=== PATIENT | female | born 1940 | race Caucasian/White ===

== ENCOUNTER 2019-07-13 09:55 | Outpatient (CLI) | payer MEDICARE, OTHER, SELFPAY ==
--- NOTE | ~2019-07-13 | MM_ITS ---
EXAMINATION: MM screening [facility] BI w irineo HISTORY: Screening mammogram TECHNIQUE: Craniocaudal and mediolateral oblique 3-D tomosynthesis images were obtained and synthetic 2-D images were generated. CAD analysis was submitted and interpreted. COMPARISON: 07/22/2018, 06/16/2017, 06/11/2016 bilateral digital screening mammogram examinations BREAST PARENCHYMAL COMPOSITION: There are scattered areas of fibroglandular density. FINDINGS: There is no evidence of suspicious mass, calcification, or architectural distortion to sugg est malignancy in either breast. There has been no suspicious interval change. IMPRESSION: 1. No mammographic evidence of malignancy. 2. Recommend routine screening mammography in one year. BI-RADS Category 1: Negative Reviewed, dictated and finalized at location A.
== END 2019-07-13 09:56 | disposition home or self-care (01) ==
PROVIDERS: PCP Registered Nurse; Visit Provider Registered Nurse
DX: Z12.31 Encounter for screening mammogram for malignant neoplasm of breast (principal)
CPT/HCPCS: 77063; 77067

== ENCOUNTER 2020-07-17 09:26 | Outpatient (CLI) | payer MEDICARE, OTHER, SELFPAY ==
--- NOTE | ~2020-07-17 | MM_ITS ---
EXAMINATION: MM screening [facility] BI w irineo HISTORY: Screening mammogram TECHNIQUE: Craniocaudal and mediolateral oblique 3-D tomosynthesis images were obtained and synthetic 2-D images were generated. CAD analysis was submitted and interpreted. COMPARISON: 07/13/2019, 07/12/2018, 06/12/2017 bilateral digital screening mammogram examinations BREAST PARENCHYMAL COMPOSITION: There are scattered areas of fibroglandular density. FINDINGS: There is no evidence of suspicious mass, calcification, or architectural distortion to sugg est malignancy in either breast. There has been no suspicious interval change. IMPRESSION: 1. No mammographic evidence of malignancy. 2. Recommend routine screening mammography in one year. BI-RADS Category 1: Negative Reviewed, dictated and finalized at location A.
== END 2020-07-17 09:27 | disposition home or self-care (01) ==
PROVIDERS: PCP Registered Nurse; Visit Provider Registered Nurse
DX: Z12.31 Encounter for screening mammogram for malignant neoplasm of breast (principal)
CPT/HCPCS: 77063; 77067

== ENCOUNTER → 2020-10-31 09:24 | Outpatient (CLI) | payer MEDICARE, OTHER, SELFPAY ==
--- NOTE | ~2020-10-31 | MR_ITS ---
EXAMINATION: MR foot RT wo con DATE: 10/31/2020 10:29 INDICATION: Right foot pain. TECHNIQUE: Magnetic resonance imaging (MRI) of the right foot was performed without intravenous contr ast. Sequences included sagittal T1-weighted FSE and STIR FSE, long axis PD-weighted FSE and STIR FSE , and short axis TI-weighted FSE and STIR FSE. COMPARISON: None FINDINGS: There is a skin marker dorsal to Lisfranc joint. There is moderate hallux valgus. There are screws in first proximal phalanx and first metatarsal. No fracture. There is severe osteoarthritis o f first metatarsophalangeal joint and mild to moderate osteoarthritis of many of the interphalangeal joints. There is severe osteoarthritis of second and third tarsometatarsal joints. There is mild to m oderate osteoarthritis of many of the other midfoot and hindfoot joints. There is thickening of the p lantar fascia near the calcaneal attachment with an enthesophyte at the calcaneal attachment, consist ent with fasciitis. Lisfranc ligament is intact. The flexor and extensor tendons are unremarkable. Th ere is moderate fatty atrophy of abductor digiti quinti muscle. IMPRESSION: 1. 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 2. Moderate hallux valgus. Reviewed, dictated and finalized at location A. IMPRESSION: 1. Polyarticular osteoarthritis including severe osteoarthritis of the second a nd third tarsometatarsal joints in the area of the patient's pain. 2. Moderate hallux valgus.
== END ==
PROVIDERS: PCP Registered Nurse; Visit Provider Podiatrist Foot & Ankle Surgery
DX: M19.071 Primary osteoarthritis, right ankle and foot (principal); M20.11 Hallux valgus (acquired), right foot
CPT/HCPCS: 73718

== ENCOUNTER 2020-12-13 12:01 | Outpatient (CLI) | payer MEDICARE, OTHER, SELFPAY ==
--- NOTE | ~2020-12-13 | XR_ITS ---
EXAMINATION: XR hand RT 2V, XR hand LT 2V DATE: 12/13/2020 12:38 INDICATION: Polyarthralgia, right greater than left. TECHNIQUE: 1. Posteroanterior and lateral views of the right hand were obtained. 2. Posteroanterior and lateral views of the left hand were obtained. COMPARISON: None. FINDINGS: Alignment is normal at both hands. No fractures. Polyarticular osteoarthritis characterized by nonuni form joint space narrowing and marginal osteophyte formation, moderate severity at the bilateral firs t carpometacarpal joints, bilateral second metacarpophalangeal joints and bilateral second and third distal interphalangeal joints. Mild osteoarthritis at the remaining metacarpophalangeal and interphal angeal joints. There is periarticular soft tissue swelling at several of the metacarpophalangeal and interphalangeal joints most prominent at the right second metacarpophalangeal joint. No definitive er osions to suggest inflammatory arthritis. IMPRESSION: 1. Relatively symmetric moderate polyarticular osteoarthritis at the bilateral hands. Reviewed, dictated and finalized at location A. IMPRESSION: 1. Relatively symmetric moderate polyarticular osteoarthritis at the bilateral hands.
== END 2020-12-13 12:02 | disposition home or self-care (01) ==
PROVIDERS: PCP Registered Nurse; Visit Provider Physician Assistant
DX: M19.041 Primary osteoarthritis, right hand (principal); M19.042 Primary osteoarthritis, left hand
CPT/HCPCS: 73120

== ENCOUNTER 2021-01-15 13:25 | Emergency (ER) | payer MEDICARE, OTHER, SELFPAY ==
--- NOTE | ~2021-01-15 | XR_ITS ---
EXAMINATION: XR hand RT min 3V DATE: 01/15/2021 13:51 INDICATION: Right hand injury with laceration to the third and fourth digits. TECHNIQUE: Posteroanterior, oblique and lateral views of the right hand were obtained. COMPARISON: 12/13/2020 FINDINGS: Oblique linear lucent fracture line extending from the radial aspect of the tuft of the fourth distal phalanx to the ulnar side of the mid diaphysis. Soft tissue swelling and irregular skin contour at t he distal phalanx consistent with reported laceration injury. Similar suggestion of laceration at the radial aspect of the fourth distal phalanx. No other fractures identified. Again seen is polyarticul ar osteoarthritis, severe at the second distal interphalangeal joint and moderate severity at the fir st carpometacarpal, second metacarpophalangeal and third-fifth distal interphalangeal joints and mild at the triscaphe and remaining metacarpophalangeal and interphalangeal joints. IMPRESSION: 1. Nondisplaced extra articular fracture at the fourth distal phalanx with adjacent laceration sugges t this may represent an open/compound fracture. 2. Moderate severity polyarticular osteoarthritis through the right hand. Reviewed, dictated and finalized at location A. ING INSPECTOR IMPRESSION: 1. Nondisplaced extra articular fracture at the fourth distal phalanx with dorie cent laceration suggest this may represent an open/compound fracture. 2. Moderate severity polyarticular osteoarthritis through the right hand.
[2021-01-15 13:41] VITALS: BP 165/92; PULSE 137; RESP 18; TEMP 37; O2SAT 100
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
--- NOTE | 2021-01-15 14:49 | PC.NURSE ---
registry np in to suture.
== END 2021-01-15 15:53 | disposition home or self-care (01) ==
PROVIDERS: Emergency Provider Nurse Practitioner; PCP Registered Nurse
DX: S62.664B Nondisplaced fracture of distal phalanx of right ring finger, initial encounter for open fracture (principal); S61.212A Laceration without foreign body of right middle finger without damage to nail, initial encounter; V09.29XA Pedestrian injured in traffic accident involving other motor vehicles, initial encounter; E78.00 Pure hypercholesterolemia, unspecified; I10 Essential (primary) hypertension; G25.81 Restless legs syndrome
CPT/HCPCS: 12002; 73130; 99213; G0463

== ENCOUNTER 2021-08-14 09:58 | Outpatient (CLI) | payer MEDICARE, OTHER, SELFPAY ==
--- NOTE | ~2021-08-14 | MM_ITS ---
EXAMINATION: MM screening [facility] BI w irineo HISTORY: Screening mammogram TECHNIQUE: Craniocaudal and mediolateral oblique 3-D tomosynthesis images were obtained and synthetic 2-D images were generated. CAD analysis was submitted and interpreted. COMPARISON: 07/17/2020, 07/13/2019, 06/25/2018 bilateral screening mammogram examinations BREAST PARENCHYMAL COMPOSITION: There are scattered areas of fibroglandular density. FINDINGS: There is no evidence of suspicious mass, calcification, or architectural distortion to sugg est malignancy in either breast. There has been no suspicious interval change. IMPRESSION: 1. No mammographic evidence of malignancy. 2. Recommend routine screening mammography in one year. BI-RADS Category 1: Negative Reviewed, dictated and finalized at location A.
== END 2021-08-14 09:59 | disposition home or self-care (01) ==
PROVIDERS: PCP Registered Nurse; Visit Provider Registered Nurse
DX: Z12.31 Encounter for screening mammogram for malignant neoplasm of breast (principal)
CPT/HCPCS: 77063; 77067

== ENCOUNTER 2022-11-26 10:18 | Outpatient (CLI) | payer MEDICARE, OTHER, SELFPAY ==
--- NOTE | ~2022-11-26 | MM_ITS ---
EXAMINATION: MM screening [facility] BI w irineo HISTORY: Screening mammogram TECHNIQUE: Craniocaudal and mediolateral oblique 3-D tomosynthesis images were obtained and synthetic 2-D images were generated. CAD analysis was submitted and interpreted. COMPARISON: 08/14/2021, 07/17/2020, 07/13/2019 BREAST PARENCHYMAL COMPOSITION: There are scattered areas of fibroglandular density. FINDINGS: No suspicious mass, calcification, or architectural distortion are identified in either suly ast to suggest malignancy. There has been no suspicious interval change. IMPRESSION: 1. No mammographic evidence of malignancy. 2. Recommend routine screening mammography while the patient remains in good health. BI-RADS Category 1: Negative Reviewed, dictated and finalized at location A. IMPRESSION: 1. No mammographic evidence of malignancy. 2. Recommend routine screening mammography while the patient remains in good he alth. BI-RADS Category 1: Negative
== END 2022-11-26 10:19 | disposition home or self-care (01) ==
LOC: ANHIMG 10:20
PROVIDERS: PCP Registered Nurse; Visit Provider Registered Nurse
DX: Z12.31 Encounter for screening mammogram for malignant neoplasm of breast (principal)
CPT/HCPCS: 77063; 77067

== ENCOUNTER 2023-03-06 10:17 | Outpatient (CLI) | payer MEDICARE, OTHER, SELFPAY ==
--- NOTE | ~2023-03-06 | XR_ITS ---
Left foot Technique: AP, oblique, and lateral views were obtained. Clinical History: Rheumatoid arthritis Findings: No acute fracture or dislocation is seen. Osseous alignment is anatomic. Joint spaces are p reserved without erosive or degenerative change. Soft tissues are unremarkable. Impression: Unremarkable left foot radiographs. Reviewed, dictated and finalized at [facility]. FACTURING ADVISOR Impression: Unremarkable left foot radiographs.
--- NOTE | ~2023-03-06 | XR_ITS ---
Right Hand Technique: PA, oblique, and lateral views were obtained. Clinical History: Rheumatoid arthritis Findings: No acute fracture or dislocation is seen. There is advanced osteoarthritis of the second DI P joint. There is mild osteoarthritis of the second MCP joint, first CMC joint, and third and fourth DIP joints. There is moderate degenerative change at the third PIP joint.. Soft tissues are unremarka ble. Impression: Scattered osteoarthritic changes, as above. Reviewed, dictated and finalized at location M. D RAIL INSTALLER Impression: Scattered osteoarthritic changes, as above.
--- NOTE | ~2023-03-06 | XR_ITS ---
Left Hand Technique: PA, oblique, and lateral views were obtained. Clinical History: Rheumatoid arthritis Findings: No acute fracture or dislocation is seen. There is moderate to advanced degenerative change at the first CMC joint. There is moderate degenerative change of the second MCP joint. There is mild degenerative change scattered in the interphalangeal joints. Soft tissues are unremarkable. Impression: Scattered degenerative changes, as above, worst at the first CMC joint. Reviewed, dictated and finalized at location . WELDER Impression: Scattered degenerative changes, as above, worst at the first CMC joint.
--- NOTE | ~2023-03-06 | XR_ITS ---
Right foot Technique: AP, oblique, and lateral views were obtained. Clinical History: Rheumatoid arthritis Findings: No acute fracture or dislocation is seen. There is orthopedic hardware at the distal first metatarsal and midportion of the proximal phalanx of the great toe. Suspected mild erosive changes at the TMT joints. Soft tissues are unremarkable. Impression: Suspected erosive changes at the TMT joints, which could relate to rheumatoid arthritis versus other inflammatory arthropathy. Operative changes at the great toe, as noted above. Correlate with surgical history. Reviewed, dictated and finalized at location . LANE NAVIGATOR Impression: Suspected erosive changes at the TMT joints, which could relate to rheumatoid a rthritis versus other inflammatory arthropathy. Operative changes at the great toe, as noted above. Correlate with surgical his tory.
== END 2023-03-06 10:18 ==
LOC: MICIMG 10:19
PROVIDERS: PCP Registered Nurse; Visit Provider Physician Assistant
DX: M06.00 Rheumatoid arthritis without rheumatoid factor, unspecified site (principal); G89.29 Other chronic pain; M19.041 Primary osteoarthritis, right hand; M19.042 Primary osteoarthritis, left hand; M19.071 Primary osteoarthritis, right ankle and foot
CPT/HCPCS: 73120; 73630

== ENCOUNTER 2023-08-17 12:16 | Outpatient (CLI) | payer MEDICARE, OTHER, SELFPAY ==
--- NOTE | ~2023-08-17 | XR_ITS ---
EXAMINATION: XR shoulder RT min 2V DATE: 08/17/2023 12:34 INDICATION: Acute onset right shoulder pain and decreased range of motion post lifting injury one mon th prior TECHNIQUE: AP internally and externally rotated, AP oblique externally rotated and transscapular Y vi ews of the right shoulder were obtained. COMPARISON: None FINDINGS: Normal alignment. No fracture.Mild right glenohumeral osteoarthritis and moderate to severe acromioc lavicular osteoarthritis. Right lung is clear with no focal airspace opacities, pulmonary edema, pleu ral effusion or pneumothorax. Soft tissues are unremarkable. IMPRESSION: Mild right glenohumeral and moderate to severe acromioclavicular osteoarthritis. No acute osseous abn ormality. Reviewed, dictated and finalized at location B. IMPRESSION: Mild right glenohumeral and moderate to severe acromioclavicular osteoarthritis . No acute osseous abnormality.
== END 2023-08-17 12:17 ==
PROVIDERS: PCP Registered Nurse; Visit Provider Nurse Practitioner
DX: M19.011 Primary osteoarthritis, right shoulder (principal)
CPT/HCPCS: 73030

== ENCOUNTER 2024-06-21 10:24 | Outpatient (CLI) | payer MEDICARE, OTHER, SELFPAY ==
--- NOTE | ~2024-06-21 | MM_ITS ---
EXAMINATION: MM screening [facility] BI w [facility] HISTORY: Screening mammogram TECHNIQUE: Craniocaudal and mediolateral oblique 3-D tomosynthesis images were obtained and synthetic 2-D images were generated. CAD analysis was submitted and interpreted. COMPARISON: 11/26/2022, 08/14/2021, 07/17/2020 BREAST PARENCHYMAL COMPOSITION:Not Dense. There are scattered areas of fibroglandular density. FINDINGS: No suspicious mass, calcification, or architectural distortion are identified in either suly ast to suggest malignancy. There has been no suspicious interval change. IMPRESSION: No mammographic evidence of malignancy. Recommend routine screening mammography in one year. BI-RADS Category 1: Negative Reviewed, dictated and finalized at location .
--- OUTSIDE RECORDS SUMMARY | 2024-06-21 11:37 | XMS_ITS | Encounter Summary ---
Author Organization [facility] Address [address] [place] [address] Care Team Providers Care Cattle Inspector Name Role Phone Katie Cartagena Primary Care Provider Encounter Details Date Type Department Care Team (Late st Contact Info) Description 04/25/2020 SmartSynch Message Enc [facility] Family & Internal Medicine [facility] [address] [place] [id number] Katie Cartagena APNP [address] [place] [address] RE: Medication Questions Social History Tobacco Use Types Packs/Day Years Used Date Smoking Tobacco: Former Cigarettes 2 29 Smokeless Tobacco: Never Alcohol Use Standard Drinks/Week Comments Yes 0 (1 standard drink = 0.6 oz pur e alcohol) AUDIT-C Answer Date Recorded Frequency of Alcohol Consumption 2-3 times a wee k 08/11/2018 Average Number of Drinks Not on file 019 Frequency of Binge Drinking Not on file 07/24 PHQ-2 Answer Date Recorded PHQ-2 Score - If the patient scores above 3, please move on to questions 3-9 0 02/02/2020 Comments No Sex and Gender Information Value Date Recorded Sex Assigned at Female 04/29/2024 4:45 PM 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 No / Unsure 04/28/2020 12:16 PM STYRENE DEHYDRATION REACTOR OPERATOR documented as of this encounter Plan of Treatment Upcoming Encounters Date Type Department Care Team (Late st Contact Info) Description 03/02/2025 10:30 AM STYRENE DEHYDRATION REACTOR OPERATOR Office Visit [facility] [address] [place] [address] Darnell Dunne MD [facility]. [facility] [address] [place] [address] documented as of this encounter Visit Diagnoses Not on filedocumented in this encounter Care Teams Cattle Inspector Relationship Specialty Start Date End Date Katie Cartagena APNP [address] [place] [id number] PCP - General FAMILY PRACTICE 01/12/18 documented as of this encounter
--- OUTSIDE RECORDS SUMMARY | 2024-06-21 11:37 | XMS_ITS | Continuity of Care Document ---
Author Organization [facility] Address [address] [place] [address] Phone Care Team Providers Care Endoscopy Specialty Technician Name Role Phone Pramod Vega MD Unavailable Unavailable Allergies, Adverse Reactions, Alerts Substance Reaction Status Criticality Penicillins Rash and swelling Active No Informa tion Medications Medication Instructions Dosage Effective Dates (start - stop) Status Comments SIMVASTATIN (unknown strength) Not Available - Active METOPROLOL SUCCINATE (unknown strength) Not Available - Active POTASSIUM (unknown strength) Not Available - Active hydrocodone 7.5 mg-acetaminophen 325 mg tablet - Active methadone 5 mg tablet - Active Procedures Procedure Date OFFICE/OUTPATIENT VISIT EST OFFICE/OUTPATIENT VISIT EST OFFICE/OUTPATIENT VISIT NEW OFFICE/OUTPATIENT VISIT NEW Advance Directives Directive Yes / No Effective Date File Name No Information Encounters Encounter Description Practice Location Reason(s) For Visit Diagnoses Date Provider Providers Copied on Encounter OFFICE/OUTPA TIENT VISIT EST [facility], [address] [facility] [address], [place], [address], [place] tel:[phone] [facility] hip painTrochanteric bursitis 5 Gary Benavidez. [address], [place], [place], [id number] . tel: [phone] OFFICE/OUTPA TIENT VISIT EST [facility], [address], [place], [address], [place] tel:[phone] [facility] Bilateral hip followup (chief complaint) Hip bursitis 4 Bianca Styles. [address] [place], [place], [id number] . tel:[phone] OFFICE/OUTPA TIENT VISIT NEW [facility], [address], [address], tel:[phone] [facility] Left hip pain (chief complaint) Degeneration of lumbar or lumbosacral intervertebral discHip bursitis Sep-3 0-201 4 Alex Patino. [address] [place], [place], [id number] . tel:[phone] Referring Provider: David duran, [address] [place], [address] . tel:[phone] OFFICE/OUTPA TIENT VISIT NEW [facility], [address], [address], tel:[phone] [facility] Bilateral hip pain (chief complaint) Bursitis of hip regionDegeneratio n of lumbar disc disease Sep-2 3-201 4 Bianca Styles. [address] [place], [place], [id number] . tel:[phone] Referring Provider: David duran, [address] [place], [address] . tel:[phone] Family History Family Member Type Diagnosis Age At Onset Father Problem (finding) Cardiovascular disease Mother Problem (finding) chronic obstructive mayra g disease Problem (finding) Family history of renal stone Mother Problem (finding) Heart disease Problem (finding) Family history of strok e Problem (finding) Family history of hyper tension Problem (finding) Family history of back problems Problem (finding) Family history of Arthr itis Payers Payer name Insurance type Covered republican ID Authorraya tielke(s) [employer] E2 MB [id number] [facility] Choice Plus E2 [id number] Social History Type Description Quantity Date Captured Comments Alcohol Use Details No Caffeine Use Details Unknown Tobacco Use Status Occasional cigarette smoker Smoking Status Current some day smoker Smoking Tobacco Use Details Cigarette: No Details Available Cigarette: No Details Available Sex Female Vital Signs Date / Time: Height Weight BMI Pulse Rate Blood Pressure Temperature Respiratory Rate Body Surface Area Head Circumference Head Circ. Percentile Wt./Russell. Percentile BMI percentile Pulse Ox Inhaled Ox 9:04 AM 64.00 in 72.121 kg (159.00 lbs) 27.2 9 kg/m eter (2) Chief Complaint And Reason For Visit No Information Reason For Referral Reason For Referral No Information Plan Of Treatment Date Type Action Status Referral Ordered: RADEX HIP UNI COMPL MINIMUM 2 VIEWS LT ordered Referral Ordered: RADEX HIP UNI COMPL MINIMUM 2 VIEWS Bilateral hip ordered Referral Ordered: RADEX SPI LUMBOSAC 2/3 VIEWS ordered History Of Present Illness Encounter Date Complaint History Of Prese nt Illness Bilateral hip followup Left hip pain Bilateral hip pain Functional Status Date Functional Assessmen t No Information Instructions Date Instruction Additional Infor mation Home exercise program. Related t o Trochanteric bursitis Discussed treatment options Rela bill to Trochanteric bursitis Rest, ice and elevate. Related t o Hip bursitis Home exercise program. Related t o Hip bursitis Take medication as directed. Rel ated to Hip bursitis Call for increase in pain Relate d to Hip bursitis Assessments Type Assessment Date assessment Left hip pain assessment Trochanteric bursitis 5 Patient Care Teams Name Effective Dates (start - stop) Status Members No Information
--- OUTSIDE RECORDS SUMMARY | 2024-06-21 11:37 | XMS_ITS | Encounter Summary ---
Author Organization [facility] Address [address] [place] [id number] Care Team Providers Care Administrative Services Director Name Role Phone Katie Cartagena Primary Care Provider [phone] Encounter Details Date Type Department Care Team (Late Contact Info) Description 01/18/2024 Adpeps Message Enc [facility] Family & Internal Medicine [address] [phone] [employer], [facility] Provider Urine culture results Social History Tobacco Use Types Packs/Day Years Used Date Smoking Tobacco: Former Cigarettes 2 29 1 960 - 1988 Passive Smoke Exposure: Never Smokeless Tobacco: Never Alcohol Use Standard Drinks/Week Comments Yes 0 (1 standard drink = 0.6 oz pur e alcohol) AUDIT-C Answer Date Recorded Frequency of Alcohol Consumption 2-3 times a wee k 08/11/2018 Average Number of Drinks Not on file 019 Frequency of Binge Drinking Not on file 07/24 PHQ-2 Answer Date Recorded Patient Health Questionnaire-2 Score 0 09/11/2023 Comments No Sex and Gender Information Value Date Recorded Sex Assigned at Female 04/29/2024 4:45 PM COLLISION REPAIRER Legal Sex Female 9:58 PM CDT Gender Identity Not on file Sexual Orientation Not on file documented as of this encounter Plan of Treatment Upcoming Encounters Date Type Department Care Team (Late Contact Info) Description 03/02/2025 10:30 AM COLLISION REPAIRER Office Visit Gil Dinero-O'Fallo n [facility], [address] [address] Darn[facility] Dun[facility] [address] [place] [address] documented as of this encounter Visit Diagnoses Not on filedocumented in this encounter Additional Health Concerns Assessment Noted Time PHQ-9 Depression Total Score: 0 04/28/19 24 11:46 AM COLLISION REPAIRER documented as of this encounter Care Teams Administrative Services Director Relationship Specialty Start Date End Date Katie Cartagena APNP [facility] [place] [address] PCP - General FAMILY PRACTICE 01/12/18 documented as of this encounter
--- OUTSIDE RECORDS SUMMARY | 2024-06-21 11:37 | XMS_ITS | Clinical Summary ---
Author Organization [facility] Address [address] [place] [address] Care Team Providers Care Slitter Scorer Name Role Phone Vipin Vences VINNY Primary Care Provider Allergies Active Allergy Reactions Criticality Noted Date Comments Penicillins Rash,Unknown,Angioedema Low 09/04/2011 Reaction: RASH, SWELLING, , Medications Cholecalciferol (VITAMIN D) 1000 UNIT tablet Take 1 tablet (1,000 Units total) by mouth daily. Active hydrocodone-acet aminophen 7.5-325 MG tablet TK 1 T PO BID AND 1 T FOR BREAKTHROUGH DURING THE NIGHT IF NECESSARY 0 9 Active methadone 5 MG tablet Take 1 tablet (5 mg total) by mouth 2 (two) times daily. 0 9 Active Potassium 99 MG tablet Take 99 mg by mouth daily. Active MAGNESIUM CARBONATE OR Active famotidine (PEPCID) 10 MG tablet Take 1 tablet (10 mg total) by mouth daily. Active metoprolol tartrate (LOPRESSOR) 25 MG tablet Take 1 tablet (25 mg total) by mouth daily as needed (palpitations). 90 tablet 2 Active hydroxychloroqui ne (PLAQUENIL) 200 MG tablet 2 (two) times daily. 4 Active simvastatin (ZOCOR) 20 MG tabletIndication s:Hypercholester olemia TAKE 1 TABLET BY MOUTH EVERY NIGHT AT BEDTIME 90 tablet 3 4 Active lisinopril (PRINIVIL) 40 MG tabletIndication s:Primary hypertension take 1 tablet by mouth daily 90 tablet 3 4 Active nabumetone (RELAFEN) 750 MG tablet Take 1 tablet (750 mg total) by mouth 2 (two) times daily. Active allopurinol (ZYLOPRIM) 100 MG tabletIndication s:Hyperuricemia take 1 tablet by mouth daily 90 tablet 3 4 Active pregabalin (LYRICA) 25 MG capsule Take 2 capsules (50 mg total) by mouth daily as needed. Take 1-2 capsules daily as needed for restless legs. 4 Active metoprolol succinate ER (TOPROL-XL) 100 MG 24 hr tablet Take 1 tablet (100 mg total) by mouth daily. 90 tablet 3 5 Active apixaban (ELIQUIS) 5 MG tablet Take 1 tablet (5 mg total) by mouth 2 (two) times daily. 180 tablet 3 5 Active Active Problems Problem Noted Date Diagnosed Date Seronegative rheumatoid arthritis ([facility] HHS/H CC) 11/05/2023 Paroxysmal atrial fibrillation ([facility] HHS/HCC) 09/11/2023 Degenerative tear of posteri or horn of medial meniscus of right knee 08/09/2020 Primary osteoarthritis of right knee 03/15/2019 halfway (current) use of opiate analgesic 03/2017 Abnormal MRI, musculoskeletal 03/01/2015 Limb pain 12/06/2014 Hypercholesterolemia 11/24/2011 Hypertension 11/24/2011 Restless legs syndrome 11/24/2011 Overview (08/11/2018): Transitioned From: Restless leg syndrome Osteopenia Resolved Problems Problem Noted Date Diagnosed Date Resolved Date Rheumatoid arthritis involvi ng both hands with negative rheumatoid factor ([facility] HHS/HCC) 09/25/2021 12/02/2021 Tinea cruris 12/25/2017 08/11/2018 Plantar fasciitis, right 12/25/2017 Tarsal tunnel syndrome of right side 12/25/2017 07/13/2023 Obstructive sleep apnea, adult 10/29/2017 12/02/2021 Vitamin D deficiency 12/03/2015 022 Overview (08/11/2018): Transitioned From: Mild vitamin D deficiency Fallen bladder 11/01/2015 12/02/2021 Elevated creatine kinase 01/16/2015 Encounters Date Type Department Care Team Description 06/08/2024 9:34 AM CDT - 06/08/2024 11:59 PM CDT Hospital Encounter [facility] [place] [address] Darnell Dunne MD Discharge Disposition: Home or Self Care (Routine Discharge) 06/08/2024 Results Follow-Up [facility], [address] [address] Anjali Kemp RN NM PHARM NUC STRESS TEST 1 DAY W TRACING 06/08/2024 Travel 06/06/2024 Scan [facility] HE[facility] INFO SRVCS Scanned, [facility] 05/26/2024 Telephone [facility] Family & Internal Medicine [address] [phone] Vipin Vences APNP Information 05/04/2024 Orders Only [facility], [address] [address] Darnell Dunne MD 05/03/2024 Travel 05/02/2024 Telephone [facility] [address] [address] Citlaly Guerrero PA Follow Up Call (ER visit) 05/02/2024 Telephone [facility] Family & Internal [address] [phone] Vipin Vences APNP Advice 04/29/2024 4:47 PM EMBEDDED SYSTEMS DEVELOPER - 04/29/2024 11:31 PM EMBEDDED SYSTEMS DEVELOPER Emergency [facility] [place] [address] Garima Dukes MD Chest Pain Discharge Disposition: Home or Self Care (Routine Discharge) 04/29/2024 Scan [facility] INFO SRVCS Scanned, [facility] 04/29/2024 Travel 04/27/2024 Scan [facility] HE[facility] INFO SRVCS Scanned, [facility] 04/13/2024 Telephone Central Scheduling [address] [place] [address] Vipin Vences APNP Medication (Diagnosis for Prolia does not meet medical necessity) 04/13/2024 Orders Only [facility] Infusion Services at [facility] [place] [address] Vipin Vences APWOODY 03/25/2024 Scan [facility] HEALTH INFO SRVCS Scanned, [facility] 03/25/2024 Telephone [facility] Family & Internal Medicine [address] [phone] Vipin Vences APNP Medication Request from Last 3 Months Immunizations Immunization Administration Dates Next Due Fluzone High Dose - >Age 65 (Prefilled Syringe) 12/03/2022,11/06/2021,11/02/2020,2019,11/02/2018,11/13/2017,11/01/2016,0 11/07/2015,11/07/2014,12/04/2013, 013 Influenza (Generic) 11/08/2014,11/24/2011 Influenza Adult (Generic) 11/07/2019,11/2018,11/02/2016,2015,11/08/2014 MODERNA COVID-19 (12+) MRNA, LNP-S, PF, 100 MCG/ 0.5 ML DOSE 05/01/2020,04/03/2020 Pneumococcal (Pneumovax 23) 01/14/2009 Pneumococcal (Prevnar 13) 01/14/2015,12/12/2014 Pneumococcal (Prevnar 20) 09/25/2022 Shingrix 12/03/2022,09/25/2022 Tdap (Adacel) 08/02/2020 Zoster (Zostavax) [address] Unt/0.65Ml 03/18/2015 Family History Medical History Relation Comments Heart Father Hyperlipidemia Father Hypertension Father Stroke Father Emphysema Mother Heart Mother Hypertension Mother Hyperlipidemia Paternal Grandfather Hyperlipidemia Paternal Grandmother Relation Status Comments Father Mother Paternal Grandfather Paternal Grandmother Social History Tobacco Use Types Packs/Day Years Used Date Smoking Tobacco: Former Cigarettes 2 29 1 960 - 1988 Passive Smoke Exposure: Never Smokeless Tobacco: Never Tobacco Cessation:Counseling Given: Yes Alcohol Use Standard Drinks/Week Comments Yes 0 [...] Sex Assigned at Female 04/29/2024 4:45 PM EMBEDDED SYSTEMS DEVELOPER Legal Sex Female 9:58 PM CDT Gender Identity Not on file Sexual Orientation Not on file Last Filed Vital Signs Vital Sign Reading Time Taken Comments Blood Pressure 148/83 04/29/2024 10:16 PM EMBEDDED SYSTEMS DEVELOPER Pulse 62 04/29/2024 10:16 PM EMBEDDED SYSTEMS DEVELOPER Temperature 36.4 C (97.6 F) 04/29/2024 10:16 PM EMBEDDED SYSTEMS DEVELOPER Respiratory Rate 18 04/29/2024 10:16 PM EMBEDDED SYSTEMS DEVELOPER Oxygen Saturation 98% 04/29/2024 10:16 PM EMBEDDED SYSTEMS DEVELOPER Inhaled Oxygen Concentration - - Weight 79.4 kg (175 lb) 04/29/2024 10:16 PM EMBEDDED SYSTEMS DEVELOPER Height 162.6 cm (5' 4 ) 04/29/2024 10:16 PM EMBEDDED SYSTEMS DEVELOPER Body Mass Index 30.04 04/29/2024 10:16 PM EMBEDDED SYSTEMS DEVELOPER Plan of Treatment Upcoming Encounters Date Type Department Care Team (Late st Contact Info) Description 03/02/2025 10:30 AM EMBEDDED SYSTEMS DEVELOPER Office Visit [facility], [facility] [address] [place] [address] Darnell Dunne MD [facility]. [facility] [address] [place] [address] Health Maintenance Due Date Last Done Comments Annual Medicare Wellness Visit 11/20/2007 RSV Immunization or 60+ Years (1 - 1-dose 75+ series) 2017 COVID-19 Vaccine ( season) 2023 01/04/2021, 05/01/2020, 04/03/2020 PHQ-2 (Physician Watchung) 02/24/2024 09/11/2023 DTaP, Tdap and Td Vaccines (2 - Td or Tdap) 08/02/2030 08/02/2020 Pneumococcal Vaccine: 50+ Years Completed 09/25/2022, 01/14/2015, 12/12/2014, Additional history exists Zoster Vaccines Completed 12/03/2022, 04/2022, 03/18/2015 Dexa Scan (General) Completed 09/25/2023, 9 Meningococcal B Vaccine Aged Out No l onger eligible based on patient's age to complete this topic Meningococcal Vaccine Aged Out No bella jacklyn eligible based on patient's age to complete this topic RSV Immunizations Under 20 Months Aged Out No longer eligible based on patient's age to complete this topic Procedures Procedure Name Priority Date/Time Associated Diagnosis Comments NM PHARM NUC STRESS TEST 1DAY W TRACING Routine 06/08/2024 12:35 PM CDT Chest pain CARDIOLOGY STRESS TEST ONLY, EXERCISE Routine 06/08/2024 9:39 AM CDT Chest pain Seronegative rheumatoid arthritis (CMS/HCC HHS/HCC) Paroxysmal atrial fibrillation (CMS/HCC HHS/HCC) halfway (current) use of opiate analgesic Hypertension Hypercholesterolemia TROPONIN, QUANT STAT 04/29/2024 9:24 PM EMBEDDED SYSTEMS DEVELOPER ECG 12-LEAD STAT 04/29/2024 9:18 PM EMBEDDED SYSTEMS DEVELOPER XR CHEST PORTABLE STAT 04/29/2024 5:1 3 PM EMBEDDED SYSTEMS DEVELOPER TROPONIN, QUANT STAT 04/29/2024 4:46 PM EMBEDDED SYSTEMS DEVELOPER COMPREHENSIVE METABOLIC PANEL STAT 04/29/2024 4:46 PM EMBEDDED SYSTEMS DEVELOPER CBC W/DIFF AUTOMATED STAT 04/29/2024 4:46 PM EMBEDDED SYSTEMS DEVELOPER ECG 12-LEAD STAT 04/29/2024 4:39 PM EMBEDDED SYSTEMS DEVELOPER BONE DENSITY/DEXA Routine 09/25/2023 11: 02 AM CDT Postmenopausal from Last 3 Months or Most Recently Relevant to Health Maintenance Results * NM PHARM NUC STRESS TEST 1 DAY W TRACING (06/08/2024 12:35 PM CDT) Anatomical Region Laterality Modality Cardiac Nuclear Medicine 06/08/2024 9:55 AM CDT Narrative 06/08/2024 1:24 PM CDT Myocardial Perfusion Imaging Pat.Name: KIARA TOWNSEND Pat.ID: [id number] .Date: 06/08/2024 Refer.MD: Darnell Dunne [id number] Exam Time: 9:55:00 AM Study Type:WILLY NC HT MUSCLE IMAGE SPECT MULTI Height: 64 in Weight: 175 lb BSA: 1.85 m2 Age: 9 1940,83Y Sex: F Sonogrphr: TABITHA Ernandez Pat. Stat.:Outpatient Reason for Study:Chest pain History / Clinical:Ex-Smoker, Atrial fibrillation, Hypertension, Family history CAD Procedures: Nuclear Stress Test with Lexiscan Race: W Surgery: Echocardiogram ++++++++++++++++++++++++++++++++++++ SUMMARY: ++++++++++++++++++++++++++++++++++++ Stress conclusion: 1. Clinically negative. 2. Electrocardiographically negative stress test for ischemia. 3. Scintigraphic images to follow. Perfusion conclusion: 1. Good study quality. No motion correction was applied to images. No attenuation is noted. 2. Normal myocardial perfusion SPECT imaging. 3. Normal wall motion with an ejection fraction of 89%. 4. Stress test with myocardial perfusion imaging shows overall low risk for a cardiac event. ++++++++++++++++++++++++++++++++++++ FINDINGS: ++++++++++++++++++++++++++++++++++++ Protocol: Lexiscan 0.4mg was given as a rapid injection IV over a period of 10 seconds with the radiopharmaceutical injected at 20 seconds. The images were processed using the standard SPECT technique. A gated study was performed on the stress images. Impression: SPECT images demonstrate normal perfusion of normal intensity. Heart Size: The left ventricle is normal. LV Wall Motion: The LVEF is calculated to be 89%. Gated SPECT images reveal normal wall motion. Transient Ischemic Dilatation: The TID is 0.73. ++++++++++++++++++++++++++++++++++++ STRESS: ++++++++++++++++++++++++++++++++++++ Baseline Vital Signs: ECG: Sinus rhythm HR: 69 bmp Rest BP: 145/72 Regadenoson Peak Dose: 0.4 mg Stress Test Results: Max HR: 92 bmp Target HR: 139 bmp % Target: 66 % Max BP: 132/66 Max RPP: 77126 O2 sat: 98 % Symptoms and Complications: Terminated: Protocol completed Symptoms: Headache, Lightheadedness Complications: None Stress ECG Interp: No significant changes <Electronic Signature> 06/08/2024 01:24 PM Zev Knight M.D. Procedure Note Zev Knight MD - 06/08/2024 Myocardial Perfusion Imaging Pat.Name: KIARA TOWNSEND Pat.ID: [id number] St.Date: 06/08/2024 Refer.MD: Darnell Dunne [id number] Exam Time: 9:55:00 AM Study Type:WILLY NC HT MUSCLE IMAGE SPECT MULTI Height: 64 in Weight: 175 lb BSA: 1.85 m2 Age: 9 1940,83Y Sex: F Sonogrphr: TABITHA Ernandez Pat. Stat.:Outpatient Reason for Study:Chest pain History / Clinical:Ex-Smoker, Atrial fibrillation, Hypertension, Family history CAD Procedures: Nuclear Stress Test with Lexiscan Race: W Surgery: Echocardiogram ++++++++++++++++++++++++++++++++++++ SUMMARY: ++++++++++++++++++++++++++++++++++++ Stress conclusion: 1. Clinically negative. 2. Electrocardiographically negative stress test for ischemia. 3. Scintigraphic images to follow. Perfusion conclusion: 1. Good study quality. No motion correction was applied to images. No attenuation is noted. 2. Normal myocardial perfusion SPECT imaging. 3. Normal wall motion with an ejection fraction of 89%. 4. Stress test with myocardial perfusion imaging shows overall low risk for a cardiac event. ++++++++++++++++++++++++++++++++++++ FINDINGS: ++++++++++++++++++++++++++++++++++++ Protocol: Lexiscan 0.4mg was given as a rapid injection IV over a period of 10 seconds with the radiopharmaceutical injected at 20 seconds. The images were processed using the standard SPECT technique. A gated study was performed on the stress images. Impression: SPECT images demonstrate normal perfusion of normal intensity. Heart Size: The left ventricle is normal. LV Wall Motion: The LVEF is calculated to be 89%. Gated SPECT images reveal normal wall motion. Transient Ischemic Dilatation: The TID is 0.73. ++++++++++++++++++++++++++++++++++++ STRESS: ++++++++++++++++++++++++++++++++++++ Baseline Vital Signs: ECG: Sinus rhythm HR: 69 bmp Rest BP: 145/72 Regadenoson Peak Dose: 0.4 mg Stress Test Results: Max HR: 92 bmp Target HR: 139 bmp % Target: 66 % Max BP: 132/66 Max RPP: 68039 O2 sat: 98 % Symptoms and Complications: Terminated: Protocol completed Symptoms: Headache, Lightheadedness Complications: None Stress ECG Interp: No significant changes <Electronic Signature> 06/08/2024 01:24 PM Zev Knight M.D. Darnell Dunne MD NUC MED Final Resul t * TROPONIN, QUANT (04/29/2024 9:24 PM EMBEDDED SYSTEMS DEVELOPER) Only the most recent of2 resultswithin the time period is included. TROPONIN I HIGH SENSITIVITY 3 <54 ng/L 04/29/2024 10:03 PM EMBEDDED SYSTEMS DEVELOPER [facility] Comment: HIGH DOSES OF BIOTIN, TROPONIN-SPECIFIC AUTOANTIBODIES, AND ANTIBODY THERAPY CONTAINING HAMA MAY INTERFERE WITH THIS TEST RESULT. CORRELATION TO CLINICAL HISTORY AND PRESENTATION RECOMMENDED. 04/29/2024 9:24 PM EMBEDDED SYSTEMS DEVELOPER [facility] Final Result [facility] [address] [place] [address], * ECG 12 lead (04/29/2024 9:18 PM EMBEDDED SYSTEMS DEVELOPER) Only the most recent of2 resultswithin the time period is included. 04/29/2024 9:18 PM EMBEDDED SYSTEMS DEVELOPER Narrative 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 DDED SYSTEMS DEVELOPER us Marilee Kim [place] ECG ORDERABLES Final Result [facility] RAD * XR CHEST PORTABLE (04/29/2024 5:13 PM EMBEDDED SYSTEMS DEVELOPER) Anatomical Region Laterality Modality Chest Radiographic Radha ging 04/29/2024 5:18 PM EMBEDDED SYSTEMS DEVELOPER Impressions 04/29/2024 5:20 PM EMBEDDED SYSTEMS DEVELOPER Impression: No acute findings. Referred By: Interpreted By: William Anton MD, 04/29/2024 5:18 PM Narrative 04/29/2024 5:20 PM EMBEDDED SYSTEMS DEVELOPER [address] [place], [place] [address] Examination: Chest 1 view portable History: Chest pain DATE/TIME: 04/29/2024 4:52 PM Comparison: 11/05/2023 Technique: AP upright portable view of the chest was obtained. Findings: Heart size, mediastinal contours and pulmonary vasculature are within normal limits. No pulmonary consolidation, pleural effusion or pneumothorax. No acute osseous abnormality. Procedure Note William Anton MD - 04/29/[address] [address] Examination: Chest 1 view portable History: Chest pain DATE/TIME: 04/29/2024 4:52 PM Comparison: 11/05/2023 Technique: AP upright portable view of the chest was obtained. Findings: Heart size, mediastinal contours and pulmonary vasculature arewithin normal limits. No pulmonary consolidation, pleural effusion orpneumothorax. No acute osseous abnormality. Impression: No acute findings. Referred By: Interpreted By: William Anton MD, 04/29/2024 5:18 PM [facility] Final Result * (ABNORMAL) COMPREHENSIVE METABOLIC PANEL (04/29/2024 4:46 PM EMBEDDED SYSTEMS DEVELOPER) GLUCOSE 116(H) 70 - 99 MG/DL 04/29/2024 5:26 PM EMBEDDED SYSTEMS DEVELOPER [facility] BUN 20(H) 7 - 18 MG/DL 04/29/2024 5:26 PM EMBEDDED SYSTEMS DEVELOPER [facility] CREATININE S/P/B 1.02 0.55 - 1.02 MG/DL 04/29/2024 5:26 PM [facility] SODIUM S/P/B 133(L) 136 - 145 MMOL/L 04/29/2024 5:26 PM [facility] POTASSIUM S/P/B 4.0 3.5 - 5.1 MMOL/L 04/29/2024 5:26 PM [facility] CHLORIDE S/P/B 101 97 - 115 MMOL/L 04/29/2024 5:26 PM [facility] CO2 30.0 21 - 32 MMOL/L 04/29/2024 5:26 PM [facility] CALCIUM S/P/B 9.2 8.5 - 10.1 MG/DL 04/29/2024 5:26 PM [facility] BILIRUBIN TOTAL S/P/B 0.3 0.2 - 1.2 MG/DL 04/29/2024 5:26 PM [facility] Comment: THIS ASSAY IS NOT RECOMMENDED FOR PATIENTS UNDERGOING TREATMENT WITH ELTROMBOPAG DUE TO THE POTENTIAL FOR FALSELY ELEVATED RESULTS. TOTAL PROTEIN S/P/B 7.2 6.4 - 8.2 G/DL 04/29/2024 5:26 PM [facility] ALBUMIN S/P/B 3.8 3.4 - 5.0 G/DL 04/29/2024 5:26 PM [facility] AST 19 15 - 37 U/L 04/29/2024 5:26 PM [facility] ALT 22 14 - 55 U/L 04/29/2024 5:26 PM [facility] ALKALINE PHOSPHATASE S/P/B 76 50 - 136 U/L 04/29/2024 5:26 PM [facility] ANION GAP 2.0 2 - 10 MMOL/L 04/29/2024 5:26 PM [facility] BUN CREATININE RATIO 19.6 6 - 26 04/29/2024 5:26 PM [facility] A/G RATIO 1.1 1.0 - 2.0 RATIO 04/29/2024 5:26 PM EMBEDDED SYSTEMS DEVELOPER [facility] GFR ESTIMATE 55(L) >90 ML/MIN/1.7 3 M2 04/29/2024 5:26 PM [facility] Comment: NOTE: eGFR is not calculated for patients <18 years of age or gender unknown. This is an estimated GFR calculation using the new CKD EPI creatinine equation without race and so does not require a correction factor for race. This estimated GFR should not be used for calculating drug doses. 04/29/2024 4:46 PM EMBEDDED SYSTEMS DEVELOPER us [facility] Final Result [facility] [address] [place] [address], * CBC W/DIFF AUTOMATED (04/29/2024 4:46 PM EMBEDDED SYSTEMS DEVELOPER) WBC 7.60 4.50 - 11.00 x10'3/uL 04/29/2024 7:26 PM [facility] RBC 4.58 4.20 - 5.40 x10'6/uL 04/29/2024 7:26 PM [facility] HGB 13.7 12.0 - 16.0 G/DL 04/29/2024 7:26 PM [facility] HCT 41.7 38.0 - 48.0 % 04/29/2024 7:26 PM [facility] MCV 91.0 81.0 - 99.0 FL 04/29/2024 7:26 PM [facility] MCH 29.9 27.0 - 31.0 PG 04/29/2024 7:26 PM [facility] MCHC 32.9 32.0 - 36.0 G/DL 04/29/2024 7:26 PM [facility] RDW 12.4 11.5 - 14.5 % 04/29/2024 7:26 PM [facility] PLT 233 130 - 400 x10'3/uL 04/29/2024 7:26 PM [facility] MPV 10.3 9.3 - 12.2 FL 04/29/2024 7:26 PM [facility] CBC COMMENT AUTOMATED RBC MORPHOLOGY AND PLATELET EVALUATION NORMAL 04/29/2024 7:26 PM [facility] NEUTROPHILS % 43.3 % 04/29/2024 7:26 PM [facility] LYMPHOCYTES % 42.2 % 04/29/2024 7:26 PM [facility] MONOCYTES % 10.8 % 04/29/2024 7:26 PM [facility] EOSINOPHILS 2.9 % 04/29/2024 7:26 PM [facility] BASOPHILS 0.7 % 04/29/2024 7:26 PM [facility] IMMATURE GRANS % 0.1 % 04/30/19 7:26 PM [facility] NRBC % 0.0 % 04/29/2024 7:26 PM [facility] ABS. NEUTROPHILS 3.29 1.80 - 7.70 x10'3/uL 04/29/2024 7:26 PM [facility] ABS. LYMPHOCYTES 3.21 1.00 - 4.80 x10'3/uL 04/29/2024 7:26 PM [facility] ABS. MONOCYTES 0.82 0.24 - 0.86 x10'3/uL 04/29/2024 7:26 PM [facility] ABS. EOSINOPHILS 0.22 0.04 - 0.36 x10'3/uL 04/29/2024 7:26 PM [facility] ABS. BASOPHILS 0.05 0.01 - 0.08 x10'3/uL 04/29/2024 7:26 PM EMBEDDED SYSTEMS DEVELOPER [facility] ABS. IMMATURE GRANULOCYTES 0.01 0.00 - 0.49 x10'3/uL 04/29/2024 7:26 PM EMBEDDED SYSTEMS DEVELOPER [facility] ABS. NUCLEATED RBC'S 0.00 0.00 - 0.01 x10'3/uL 04/29/2024 7:26 PM EMBEDDED SYSTEMS DEVELOPER [facility] 04/29/2024 4:46 PM EMBEDDED SYSTEMS DEVELOPER us [facility] Final Result Performing Organization Address City/State/[facility] Co de Phone Number [facility] [address] [id number], * BONE DENSITY/DEXA (09/25/2023 11:02 AM CDT) Anatomical Region Laterality Modality Bone Mammography 09/25/2023 1:43 PM CDT Impressions 09/25/2023 1:45 PM CDT IMPRESSION: WHO Classification: osteopenia. FRAX: 10% chance of hip fracture and 20% chance of major osteoporotic fracture over the next 10 years. Referred By: VIPIN VENCES Interpreted By: Valdemar Anderson MD, 09/25/2023 1:43 PM Narrative 09/25/2023 1:45 PM CDT Examination: Bone Density Axial Exam Date/Time: 09/25/2023 10:35 AM Reason For Exam: Postmenopausal Comparison: None Findings: DEXA bone densitometry The bone mineral density (BMD) was determined by dual-energy x-ray absorptiometry, the results are as follows: AP Lumbar Spine L1 through L4 BMD Patient (GM/SQCM): 1.494 T-Score (Standard deviations from young adult peak bone density): 4.1 Right femoral neck: BMD Patient (GM/SQCM): 0.731 T-Score (Standard deviations from young adult peak bone density): -1.1 Total Left femur: BMD Patient (GM/SQCM): 0.968 T-Score (Standard deviations from young adult peak bone density): 0.2 Recommendations: All patients should ensure an adequate intake of dietary calcium and vitamin D. The NOF recommend adults under the age of 50 need 1000 mg of calcium and 400-800 IU of vitamin D daily. Effective therapy for the prevention and treatment of osteoporosis include biphosphonates. Follow-up: People with diagnosed cases of osteoporosis or at high risk for fracture should have regular bone mineral density test. For patients eligible for Medicare, routine testing is allowed once every 2 years. Testing frequency can be increased to one year for patients who have rapidly progressing disease, those who are receiving or discontinuing medical therapy to restore bone mass, or have additional risk factors. Procedure Note Valdemar Anderson MD - 09/25/2023 Examination: Bone Density Axial Exam Date/Time: 09/25/2023 10:35 AM Reason For Exam: Postmenopausal Comparison: None Findings: DEXA bone densitometry The bone mineral density (BMD) was determined bydual-energy x-ray absorptiometry, the results are as follows: AP Lumbar Spine L1 through L4 BMD Patient (GM/SQCM): 1.494 T-Score (Standard deviations from young adult peak bonedensity): 4.1 Right femoral neck: BMD Patient (GM/SQCM): 0.731 T-Score (Standard deviations from young adult peak bonedensity): -1.1 Total Left femur: BMD Patient (GM/SQCM): 0.968 T-Score (Standard deviations from young adult peak bonedensity): 0.2 Recommendations: All patients should ensure an adequate intake of dietary calcium andvitamin D. The NOF recommend adults under the age of 50 need 1000 mg ofcalcium and 400-800 IU of vitamin D daily. Effective therapy for theprevention and treatment of osteoporosis include biphosphonates. Follow-up: People with diagnosed cases of osteoporosis or at high risk for fractureshould have regular bone mineral density test. For patients eligible forMedicare, routine testing is allowed once every 2 years. Testing frequencycan be increased to one year for patients who have rapidly progressingdisease, those who are receiving or discontinuing medical therapy torestore bone mass, or have additional risk factors. IMPRESSION: WHO Classification: osteopenia. FRAX: 10% chance of hip fracture and 20% chance of major osteoporoticfracture over the next 10 years. Referred By: VIPIN VENCES Interpreted By: Valdemar Anderson MD, 09/25/2023 1:43 PM Vipin CASILLAS DEXA Final Resul t from Last 3 Months or Most Recently Relevant to Health Maintenance Insurance [employer] Member Subscriber Plan / Payer (Ef fective 2007-Present) Name:Kiara Townsend Relation to Subscriber:Self Name:Kiara Townsend Payer ID:Not on file Group ID:Not on file Type:Medicare Address: [address] [id number] Care Teams Slitter Scorer Relationship Specialty Start Date End Date Vipin Vences APNP [address] [place] [id number] PCP - General FAMILY PRACTICE 01/12/18
--- OUTSIDE RECORDS SUMMARY | 2024-06-21 11:37 | XMS_ITS | Encounter Summary ---
Author Organization [facility] Address [address] [place] [id number] Care Team Providers Care Subsea Engineer Name Role Phone David Bolaños MD Primary Care Provider Katie Hathaway Primary Care Provider [phone] Encounter Details Date Type Department Care Team (Latest Contact Info) Description 10/29/2017 Abstract [facility] , Deya Bedoya MD Social History Tobacco Use Types Packs/Day Years Used Date Smoking Tobacco: Former Comments Unknown Sex and Gender Information Value Date Recorded Sex Assigned at Female 04/29/2024 4:45 PM BUSINESS SUPPORT ASSOCIATE Legal Sex Female 9:58 PM CDT Gender Identity Not on file Sexual Orientation Not on file documented as of this encounter Plan of Treatment Upcoming Encounters Date Type Department Care Team (Late st Contact Info) Description 03/02/2025 10:30 AM BUSINESS SUPPORT ASSOCIATE Office Visit [facility] [address] [place] [address] Darnell Dunne MD [facility] [address] [place], [place] [id number] documented as of this encounter Visit Diagnoses Not on filedocumented in this encounter Care Teams Subsea Engineer Relationship Specialty Start Date End Date David Bolaños MD PCP - General 08/13/16 01/11/18 Katie Cartagena APNP [address] [place] [phone] PCP - General FAMILY PRACTICE 01/12/18 documented as of this encounter
--- OUTSIDE RECORDS SUMMARY | 2024-06-21 11:37 | XMS_ITS | Encounter Summary ---
Author Organization [facility] Address [address] [place] [address] Care Team Providers Care Purchasing Expeditor Name Role Phone Katie Cartagena Primary Care Provider [phone] Encounter Details Date Type Department Care Team (Late Contact Info) Description 06/08/2024 Results Follow-Up [facility] [address] [address] Anjali Kemp, RN [place] PHARM NUC STRESS TEST 1 DAY W TRACING Social History Tobacco Use Types Packs/Day Years Used Date Smoking Tobacco: Former Cigarettes 2 1 960 - 1988 Passive Smoke Exposure: [...] Sex Assigned at Female 04/29/2024 4:45 PM SEAT COVER CUTTER Legal Sex Female 9:58 PM CDT Gender Identity Not on file Sexual Orientation Not on file documented as of this encounter Plan of Treatment Upcoming Encounters Date Type Department Care Team (Late Contact Info) Description 03/02/2025 10:30 AM SEAT COVER CUTTER Office Visit [facility] [place] [address] [place] [address] Darnell Dunne MD Three [facility]. [place] [address] [place] [address] documented as of this encounter Visit Diagnoses Not on filedocumented in this encounter Additional Health Concerns Assessment Noted Time PHQ-9 Depression Total Score: 0 04/28/19 24 11:46 AM SEAT COVER CUTTER documented as of this encounter Care Teams Purchasing Expeditor Relationship Specialty Start Date End Date Katie Cartagena APNP [facility] [place] [place] [address] PCP - General FAMILY PRACTICE 01/12/18 documented as of this encounter
--- OUTSIDE RECORDS SUMMARY | 2024-06-21 11:37 | XMS_ITS | Encounter Summary ---
Author Organization [facility] Address [address] [place] [address] Care Team Providers Care Optical Store Manager Name Role Phone Katie Cartagena Primary Care Provider Encounter Details Date Type Department Care Team (Late st Contact Info) Description 08/08/2020 smartclip Message Enc [facility] Medical [facility] Family & Internal [facility] [address] [place] [phone] Katie Cartagena APNP [address] [place] [address] Test Results Social History Tobacco Use Types Packs/Day Years [...] please move on to questions 3-9 0 08/09/2020 Comments No Sex and Gender Information Value Date Recorded Sex Assigned at Female 04/29/2024 4:45 PM DETENTION SERGEANT Legal Sex Female 9:58 PM CDT Gender Identity Not on file Sexual Orientation Not on file COVID-19 Exposure Response Date Recorded In the last month, have you been in contact with someone who was confirmed or suspected to have Coronavirus / COVID-19? No / Unsure 08/08/2020 9:52 PM CDT documented as of this encounter Plan of Treatment Upcoming Encounters Date Type Department Care Team (Late st Contact Info) Description 03/02/2025 10:30 AM DETENTION SERGEANT Office Visit [facility] [address] [place], [place] [phone] Darnell Dunne MD Three [facility]. [facility] [address] [place] [address] documented as of this encounter Visit Diagnoses Not on filedocumented in this encounter Care Teams Optical Store Manager Relationship Specialty Start Date End Date Katie Cartagena APNP [address] [place] [phone] PCP - General FAMILY PRACTICE 01/12/18 documented as of this encounter
--- OUTSIDE RECORDS SUMMARY | 2024-06-21 11:37 | XMS_ITS | Encounter Summary ---
Author Organization [facility] Address [address] [place] [address] Care Team Providers Care Tavern Car Attendant Name Role Phone Katie Cartagena Primary Care Provider [phone] Encounter Details Date Type Department Care Team (Late Contact Info) Description 09/30/2021 [employer] HEALTH INFO [facility] [place] Provider Patient Amendment Request Social History Tobacco Use Types Packs/Day Years [...] 3, please move on to questions 3-9 5 08/21/2021 Comments No Sex and Gender Information Value Date Recorded Sex Assigned at Female 04/29/2024 4:45 PM FORMULATION CHEMIST Legal Sex Female 9:58 PM CDT Gender Identity Not on file Sexual Orientation Not on file COVID-19 Exposure Response Date Recorded In the last 10 days, have yo u been in contact with someone who was confirmed or suspected to have Coronavirus/COVID-19? No / Unsure 09/11/2021 6:55 AM CDT documented as of this encounter Plan of Treatment Upcoming Encounters Date Type Department Care Team ([facility] Contact Info) Description 03/02/2025 10:30 AM FORMULATION CHEMIST Office Visit [facility] [address] [place] [address] Darnell Dunne MD Three [facility]. [facility] [address] [place] [address] documented as of this encounter Visit Diagnoses Not on filedocumented in this encounter Additional Health Concerns Assessment Noted Time PHQ-9 Depression Total Score: 11 022 1:30 PM CDT documented as of this encounter Care Teams Tavern Car Attendant Relationship Specialty Start Date End Date Katie Cartagena APNP [address] [place] [phone] PCP - General FAMILY PRACTICE 01/12/18 documented as of this encounter
== END 2024-06-21 10:25 | disposition home or self-care (01) ==
PROVIDERS: PCP Registered Nurse; Visit Provider Registered Nurse
DX: Z12.31 Encounter for screening mammogram for malignant neoplasm of breast (principal)
CPT/HCPCS: 77063; 77067